=== PATIENT | female | born 1970 | race Caucasian/White ===

== ENCOUNTER 2019-09-09 13:03 | Outpatient (CLI) | payer BC ==
--- NOTE | 2019-09-09 15:02 | ULT ---
THYROID ULTRASOUND: Date: 09/09/2019 HISTORY: Follow-up thyroid nodule. FINDINGS: Real-time imaging of the right and left lobes of the thyroid gland performed. Right lobe measures 1.1 x 0.7 x 4.4 cm. Left lobe measures 1.1 x 0.8 x 3.7 cm. Small hypoechoic nodules are seen bilaterally. One is measuring 2 x 3 mm in size in the upper pole on the left and one measures 3 x 4 mm in the mid pole region on the right. Right lesion is more complex cystic in appearance. In reviewing the 09/06/2018 exam, the small left lobe nodule was not seen on that study. Given its sm all size, there is no need for aspiration. The right-sided nodule is felt to be stable. IMPRESSION: Small bilateral thyroid nodules. POS: ANDREA
== END 2019-09-09 13:04 | disposition home or self-care (01) ==
LOC: BICULT 13:03
PROVIDERS: ATTEND Internal Medicine
DX: E04.2 Nontoxic multinodular goiter (principal)
CPT/HCPCS: 76536